=== PATIENT | male | born 1975 | race Caucasian/White ===

== ENCOUNTER 2017-01-14 07:52 | Emergency (ER) | payer OTHER ==
[~2017-01-14] VITALS: Ht 175.3 cm; Wt 65.0 kg
[~2017-01-14 07:52] MED LIST: CEPH500T PO; LISI2.5T55 PO; METF500 PO
[2017-01-14 07:55] VITALS: BP 128/59; PULSE 57; RESP 17; TEMP 98; O2SAT 97
[2017-01-14 08:14] VITALS: BP 119/59; PULSE 65; RESP 17; O2SAT 100
[2017-01-14] MEDS ORDERED: LISI2.5T3 PO (08:19)
[2017-01-14] MEDS ORDERED: TIZA2CAP3 PO (08:19)
[2017-01-14] MEDS ORDERED: ATOR10TA15 PO (08:19)
[2017-01-14] MEDS ORDERED: METF500T PO (08:19)
--- NOTE | 2017-01-14 08:44 | PD ---
HPI Chief Complaint: Chest Pain Time Seen by Provider: 08:24 Travel History International Travel<30 days: No Contact w/Intl Traveler<30days: No Traveled to known affect area: No History of Present Illness HPI Patient is a 41-year-old male presents emergency department for evaluation of chest pain intermittent over the past few months. He has a history of learning disability and is blind. He states he went to his primary care physician who ran EKG and stated was findings mentation muscle relaxers without any relief. 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 Is a fairly new activity for him. Denies any fevers cough nausea vomiting or shortness of breath. Denies any history of being immobilized for long periods. He is diabetic and states his sugars have been running good. Nonsmoker, no heart history, no family history of heart disease. PFSH Past Medical History Diabetes: Yes Patient Takes Glucophage: Yes Diminished Hearing: No Glaucoma: Yes (SINCE ) Immunizations Current: Yes ?: Not Past Surgical History Eye Surgery: Yes (PT BLIND) Social History Alcohol Use: No Tobacco Use: No Substance Use: No Allergies-Medications (Allergen,Severity, Reaction): Coded Allergies: No Known Allergies (Verified Adverse Reaction, Unknown, 01/14/17) Reported Meds & Prescriptions Reported Meds & Active Scripts Active Keflex (Cephalexin) 500 Mg Cap 500 Mg PO Q6H 7 Days Reported Tizanidine (Tizanidine HCl) 2 Mg Cap 2 Mg PO DAILY Atorvastatin (Atorvastatin Calcium) 10 Mg Tab 10 Mg PO HS Lisinopril 2.5 Mg Tab 2.5 Mg PO DAILY Metformin (Metformin HCl) 500 Mg Tab 500 Mg PO BIDPC Review of Systems Except as stated in HPI: all other systems reviewed are Neg Physical Exam Narrative GENERAL: Well-developed well-nourished distress. SKIN: Focused skin assessment warm/dry. HEAD: Atraumatic. Normocephalic. EYES: Patient has slow nystagmus of both eyes, left eye is dried with what appears to be a cataract. Patient states she's been having a twitch all of his life. ENT: No nasal bleeding or discharge. Mucous membranes pink and moist. NECK: Trachea midline. No JVD. CARDIOVASCULAR: Regular rate and rhythm. No murmur appreciated. He plus bilateral equal pulses in all 4 extremities. RESPIRATORY: No accessory muscle use. Clear to auscultation. Breath sounds equal bilaterally. GASTROINTESTINAL: Abdomen soft, non-tender, nondistended. Hepatic and splenic margins not palpable. MUSCULOSKELETAL: No obvious deformities. No clubbing. No cyanosis. No edema. NEUROLOGICAL: Awake and alert. No obvious cranial nerve deficits. Motor grossly within normal limits. Normal speech. PSYCHIATRIC: Appropriate mood and affect; insight and judgment normal. Data Data Last Documented VS Vital Signs Date Time Temp Pulse Resp B/P (MAP) Pulse Ox O2 Delivery O2 Flow Rate FiO2 01/14/17 11:02 01/14/17 09:19 100 Room Air 01/14/17 08:14 65 17 01/14/17 07:55 98.0 Orders Orders Electrocardiogram (01/14/17 08:40) Ckmb (Isoenzyme) Profile (01/14/17 08:40) Complete Blood Count With Diff (01/14/17 08:40) Comprehensive Metabolic Panel (01/14/17 08:40) Prothrombin Time / Inr (Pt) (01/14/17 08:40) Act Partial Throm Time (Ptt) (01/14/17 08:40) Troponin I (01/14/17 08:40) Chest, Single Ap (01/14/17 08:40) Ecg Monitoring (01/14/17 08:40) Iv Access Insert/Monitor (01/14/17 08:40) Oximetry (01/14/17 08:40) Oxygen Administration (01/14/17 08:40) Sodium Chloride 0.9% Flush (Ns Flush) (01/14/17 08:45) Ed Discharge Order (01/14/17 09:52) Labs Laboratory Tests Test 01/14/17 08:45 White Blood Count 8.7 TH/MM3 Red Blood Count 4.52 MIL/MM3 Hemoglobin 14.3 GM/DL Hematocrit 42.0 % Mean Corpuscular Volume 92.8 FL Mean Corpuscular Hemoglobin 31.5 PG Mean Corpuscular Hemoglobin Concent 34.0 % Red Cell Distribution Width 13.4 % Platelet Count 278 TH/MM3 Mean Platelet Volume 8.8 FL Neutrophils (%) (Auto) 55.3 % Lymphocytes (%) (Auto) 26.5 % Monocytes (%) (Auto) 12.2 % Eosinophils (%) (Auto) 5.0 % Basophils (%) (Auto) 1.0 % Neutrophils # (Auto) 4.8 TH/MM3 Lymphocytes # (Auto) 2.3 TH/MM3 Monocytes # (Auto) 1.1 TH/MM3 Eosinophils # (Auto) 0.4 TH/MM3 Basophils # (Auto) 0.1 TH/MM3 CBC Comment DIFF FINAL Differential Comment Prothrombin Time 11.7 SEC Prothromb Time International Ratio 1.1 RATIO Activated Partial Thromboplast Time 27.4 SEC Blood Urea Nitrogen 21 MG/DL Creatinine 1.09 MG/DL Random Glucose 199 MG/DL Total Protein 6.4 GM/DL Albumin 3.2 GM/DL Calcium Level 8.6 MG/DL Alkaline Phosphatase 62 U/L Aspartate Amino Transf (AST/SGOT) 13 U/L Alanine Aminotransferase (ALT/SGPT) 25 U/L Total Bilirubin 0.3 MG/DL Sodium Level 137 MEQ/L Potassium Level 4.5 MEQ/L Chloride Level 104 MEQ/L Carbon Dioxide Level 27.3 MEQ/L Anion Gap 6 MEQ/L Estimat Glomerular Filtration Rate 75 ML/MIN Total Creatine Kinase 44 U/L Troponin I LESS THAN 0.02 NG/ML MDM Medical Decision Making Medical Screen Exam Complete: Yes Emergency Medical Condition: Yes Differential Diagnosis ACS seems unlikely, atypical chest pain, chest wall pain. PE is excluded by wells and PERC criteria. Narrative Course Patient roomed in emergency department, he appears well and in no distress. EKG is reassuring, troponin negative. Chest x-ray negative. Given the nature of his symptoms I suspect chest wall as a cause of his pain. No indication further workup at this time. Discussed symptomatic management home and return to ED criteria. Diagnosis Primary Impression: Atypical chest pain Additional Instructions: Perhaps a minimal amount of atelectasis on CXR. No definative pneumonia but will cover with keflex. Med/Other Pt SpecificInfo: Prescription(s) given Scripts Cephalexin (Keflex) 500 Mg Cap 500 MG PO Q6H for Infection for 7 Days, #28 CAP 0 Refills Prov: Josesito Waite MD 01/14/17 Disposition: 01 DISCHARGE HOME Condition: Stable Josesito Waite MD Jan 14, 2017 08:44
[2017-01-14] MEDS ORDERED: SODIUM CHLORIDE 0.9% FLUSH 10 ML FLUSH IVF PRN (08:45)
[2017-01-14 09:21] LABS: AUTOMATED NEUTROPHIL # 4.8 TH/MM3 (1.8-7.7); BASOPHIL # 0.1 TH/MM3 (0-0.2); EOSINOPHIL # 0.4 TH/MM3 (0-0.4); HEMO FLAGS DIFF FINAL; LYMPH % 26.5 % (9.0-44.0); LYMPHOCYTE # 2.3 TH/MM3 (1.0-4.8); MEAN CELL VOLUME 92.8 FL (80.0-100.0); MEAN CORPUSCULAR HEMOGLOBIN 31.5 PG (27.0-34.0); MONO % 12.2 % (0.0-8.0); NEUT % 55.3 % (16.0-70.0); PLATELET COUNT 278 TH/MM3 (150-450); RED BLOOD COUNT 4.52 MIL/MM3 (4.50-5.90); RED CELL DISTRIBUTION WIDTH 13.4 % (11.6-17.2); WHITE BLOOD COUNT 8.7 TH/MM3 (4.0-11.0)
--- NOTE | 2017-01-14 09:21 | RADRPT ---
EXAM DATE/TIME: 01/14/2017 08:44 [facility] COMPARISON: No previous studies available for comparison. INDICATIONS : Chest pain. MEDICAL HISTORY : None. SURGICAL HISTORY : None. ENCOUNTER: Initial ACUITY: 1 month PAIN SCORE: 6/10 LOCATION: Bilateral chest FINDINGS: A single view of the chest demonstrates the lungs to be symmetrically aerated with biapical capping. There is some atelectatic changes or early air space consolidation medially in the left base. Right l ean is otherwise clear. No effusions. Heart size is normal. Dextroscoliosis of the dorsal spine. Osse ous structures are otherwise intact. CONCLUSION: 1. Biapical capping. 2. Atelectasis versus early infiltrate medially in the left base. Chago Jackson MD on January 14, 2017 at 9:17 Board Certified Radiologist. This report was verified electronically.
[2017-01-14 09:27] LABS: APTT (PATIENT) 27.4 SEC (24.3-30.1); INTERNATIONAL NORMALIZED RATIO 1.1 RATIO; PROTHROMBIN TIME - PATIENT 11.7 SEC (9.8-11.6)
[2017-01-14 09:32] LABS: ANION GAP 6 MEQ/L (5-15); AST (GOT) 13 U/L (15-37); BICARBONATE 27.3 MEQ/L (21.0-32.0); BLOOD UREA NITROGEN 21 MG/DL (7-18); CHLORIDE 104 MEQ/L (98-107); GLOMERULAR FILTRATION RATE 75 ML/MIN (>89); POTASSIUM 4.5 MEQ/L (3.5-5.1); SODIUM (NA) 137 MEQ/L (136-145)
[2017-01-14 09:34] LABS: ALT (GPT) 25 U/L (12-78)
[2017-01-14 09:37] LABS: ALKALINE PHOSPHATASE 62 U/L (45-117); TOTAL BILIRUBIN ADULT 0.3 MG/DL (0.2-1.0)
[2017-01-14 09:38] LABS: CREATINE KINASE 44 U/L (39-308)
[2017-01-14] MEDS ORDERED: CEPH-460 PO (09:51)
--- NOTE | 2017-01-14 18:21 | EKG ---
Date Performed: 01/14/2017 Time Performed: 08:14:01 PTAGE: 41 years EKG: SINUS BRADYCARDIA WITH MARKED SINUS ARRHYTHMIA BORDERLINE ECG NO PREVIOUS TRACING DOCTOR: Schuyler Cruz Interpretating Date/Time 01/14/2017 18:21:02
== END 2017-01-14 11:04 | disposition home or self-care (01) ==
LOC: NEPE 07:52
DX: R07.89 Other chest pain (principal); E11.9 Type 2 diabetes mellitus without complications; Z79.84 Long term (current) use of oral hypoglycemic drugs; H40.9 Unspecified glaucoma; H54.8 Legal blindness, as defined in USA
CPT/HCPCS: 71010; 80053; 82550; 84484; 85025; 85610; 85730; 93005; 99285